=== PATIENT | female | born 1990 | race Caucasian/White ===

== ENCOUNTER 2021-10-02 16:50 | Emergency (ER) | payer BC, OTHER ==
[~2021-10-02 16:50] MED LIST: COLACE 100MG C100 MG PO; IBUPROFEN600 MG PO; NORCO 5-325 TA1 EACH PO
[2021-10-02 20:14] LABS: BUN/CREATININE RATIO 23 (0-10)
[2021-10-02 20:36] LABS: HEMOGLOBIN 12.3 gm/dl (12.3-15.3); RED BLOOD COUNT 5.34 M/UL (4.00-5.10); WHITE BLOOD COUNT 14.3 K/UL (4.5-11.0)
== END 2021-10-02 23:14 | disposition home or self-care (01) ==
LOC: ER1 16:50
PROVIDERS: Emergency Medicine
DX: U07.1 COVID-19 (principal); R07.9 Chest pain, unspecified
CPT/HCPCS: 71045; 80053; 82550; 82553; 82962; 83874; 84484; 85025; 85379; 93005; 99285

== ENCOUNTER → 2021-12-25 | Outpatient (CLI) | payer BC | LOC: HEART 5 09:52 | DX: R00.2 Palpitations (principal) ==

== ENCOUNTER → 2022-03-28 | Outpatient (CLI) | payer BC | LOC: RAD 10:40 | DX: M54.6 Pain in thoracic spine (principal) | CPT/HCPCS: 72072 ==